=== PATIENT | female | born 1970 | race Caucasian/White ===

== ENCOUNTER 2022-01-03 19:44 | Inpatient (IN) | payer OTHER, MEDICAID ==
[~2022-01-03] VITALS: Ht 167.6 cm; Wt 127.3 kg
[2022-01-03] MEDS ORDERED: ASPirin 81 mg TAB PO ONE (20:00)
[2022-01-03 20:27] LABS: Basophils # (auto) 0.1 10 ^3/uL (0-0.2); Basophils % (auto) 1.3 % (0.0-2.0); Eosinophils # (auto) 0.2 10 ^3/uL (0-0.8); Eosinophils % (auto) 3.6 % (0.0-7.0); Hematocrit 40.6 % (36.0-46.0); Lymphocytes # (auto) 1.5 10 ^3/uL (0.4-5.4); Lymphocytes % (auto) 22.2 % (10.0-50.0); Mean Corpuscular Hemoglobin 30.8 pg (28.0-32.0); Mean Corpuscular Hgb Conc. 34.6 g/dL (32.0-36.0); Monocytes # (auto) 0.3 10 ^3/uL (0-1.3); Monocytes % (auto) 5.1 % (0.0-12.0); Neutrophils # (auto) 4.4 10 ^3/uL (1.6-8.6); Neutrophils % (auto) 67.8 % (37.0-80.0); Red Blood Cells 4.56 10^6/uL (4.0-5.20); Red Cell Distribution Width 13.5 % (11.8-14.3); White Blood Cell 6.5 10^3/uL (4.4-10.8)
[2022-01-03 20:31] LABS: Urine Bacteria FEW /hpf (None Seen); Urine Blood 2+ /uL (Negative); Urine Specific Gravity 1.018 (1.001-1.035); Urine WBC 11 /hpf (0 - 5)
[2022-01-03 21:00] LABS: Alanine Aminotransferase 42 U/L (13-56); Albumin 3.7 g/dL (3.4-5.0); Anion Gap 5 (5-15); Aspartate Aminotransferase 24 U/L (15-37); BUN/Creatinine Ratio 15.2; Blood Urea Nitrogen 14 mg/dL (7-18); Calcium 9.2 mg/dL (8.5-10.1); Carbon Dioxide 29 mmol/L (21-32); Chloride 108 mmol/L (98-107); GFR African American 83 mL/min; GFR Non-African American 69 mL/min; Glucose 92 mg/dL (74-106); Potassium 4.2 mmol/L (3.5-5.1); Sodium 142 mmol/L (136-145)
[2022-01-03 21:03] LABS: Alkaline Phosphatase 59 U/L (45-117); Bilirubin, Total 0.6 mg/dL (0.2-1.0); Total Protein 7.3 g/dL (6.4-8.2)
[2022-01-03] MEDS ORDERED: NITROGLYCERIN 0.4 MG SL TAB SL ONE (23:00)
[2022-01-04] VITALS (9 sets, daily range): BP systolic 96–148; BP diastolic 52–86
[2022-01-04] MEDS ORDERED: MORPHINE SULFATE INJECTION 2 MG/ML SYRG IV PRN (01:00)
[2022-01-04] MEDS ORDERED: ACETAMINOPHEN 325 MG TAB PO PRN (01:00)
[2022-01-04] MEDS ORDERED: NITROGLYCERIN 0.4 MG SL TAB SL PRN (01:00)
[2022-01-04] MEDS ORDERED: ONDANSETRON HCL 4 MG/2 ML VIAL IV PRN (01:00)
[2022-01-04] MEDS ORDERED: TEMAZEPAM 15 MG CAP PO PRN (01:00)
[2022-01-04] MEDS ORDERED: LISI20TA28 PO (03:03)
[2022-01-04] MEDS ORDERED: ALBU108A5 IN (03:03)
[2022-01-04] MEDS ORDERED: OMEP20TA PO (03:03)
[2022-01-04 03:28] LABS: Cholesterol 172 mg/dL (< 200)
[2022-01-04 03:31] LABS: HDL Cholesterol 41 mg/dL (40-59); LDL Cholesterol 114 mg/dL (< 100); Triglycerides 74 mg/dL (< 150)
[2022-01-04] MEDS ORDERED: ADENOSINE 104 MG in GIVE UN-DILUTED 0 ML IV STA (08:45)
[2022-01-04] MEDS: ASPirin 81 mg TAB PO SCH (08:58)
[2022-01-04] MEDS: PANTOPRAZOLE 40 MG TAB PO SCH (08:58)
[2022-01-04] MEDS ORDERED: LISINOPRIL 10 MG TAB PO SCH (10:00)
[2022-01-04] MEDS ORDERED: ENOXAPARIN SOD 40 MG/0.4 ML SYRINGE SC SCH (10:00)
[2022-01-04] MEDS ORDERED: KETOROLAC TROMETH 30 MG/ML 1ML VIAL IV ONE (12:15)
[2022-01-04] MEDS ORDERED: NITROFURANTOIN 100 mg CAP PO ONE (12:15)
[2022-01-04 15:20] LABS: Alcohol, Urine < 3.0 mg/dL (0-10); Amphetamine Screen, Urine NEGATIVE (NEGATIVE); Barbiturate Scree,Urine NEGATIVE (NEGATIVE); Benzodiazephine Screen, Urine NEGATIVE (NEGATIVE); Cannabinoid Screen, Urine POSITIVE (NEGATIVE); Cocaine Screen, Urine NEGATIVE (NEGATIVE); Opiate Scree,Urine NEGATIVE (NEGATIVE); Phencyclidine Screen, Urine NEGATIVE (NEGATIVE)
[2022-01-04] MEDS: traMADol HCL 50 MG TAB PO PRN (20:54)
[2022-01-04] MEDS: NITROFURANTOIN 100 mg CAP PO SCH (21:27)
[2022-01-04] MEDS ORDERED: ATORVASTATIN 20 MG TAB PO SCH (22:00)
[2022-01-05 05:00] VITALS: BP 128/69
[2022-01-05 08:46] VITALS: BP 120/74
[2022-01-05] MEDS: ASPirin 81 mg TAB PO SCH (08:46)
[2022-01-05] MEDS: NITROFURANTOIN 100 mg CAP PO SCH (08:47)
[2022-01-05] MEDS: PANTOPRAZOLE 40 MG TAB PO SCH (08:47)
[2022-01-05] MEDS: traMADol HCL 50 MG TAB PO PRN (08:47)
[2022-01-05 09:32] LABS: Calcium 8.6 mg/dL (8.5-10.1); Potassium 4.3 mmol/L (3.5-5.1)
[2022-01-05 09:34] LABS: BUN/Creatinine Ratio 23.2
[2022-01-05 12:31] VITALS: BP 132/69
[2022-01-05 13:03] VITALS: BP 119/72
== END 2022-01-05 15:30 | disposition home or self-care (01) | DRG 392 ==
LOC: ER 19:49 → TELE 01-04 00:53 → TELE-WESTW 01-04 02:34
PROVIDERS: ADMIT Nurse Practitioner; ATTEND Internal Medicine
DX: K21.9 Gastro-esophageal reflux disease without esophagitis (principal); N39.0 Urinary tract infection, site not specified; I25.110 Atherosclerotic heart disease of native coronary artery with unstable angina pectoris; Z68.41 Body mass index [BMI] 40.0-44.9, adult; E66.01 Morbid (severe) obesity due to excess calories; I10 Essential (primary) hypertension; E78.5 Hyperlipidemia, unspecified; F12.90 Cannabis use, unspecified, uncomplicated; F31.9 Bipolar disorder, unspecified; F41.9 Anxiety disorder, unspecified; J45.909 Unspecified asthma, uncomplicated; Z20.822 Contact with and (suspected) exposure to COVID-19; Z82.49 Family history of ischemic heart disease and other diseases of the circulatory system
CPT/HCPCS: 36415; 71045; 80048; 80053; 80061; 80307; 81001; 83880; 84443; 84484; 85025; 85379; 93005; 93306; G0378; J1885; J2405